=== PATIENT | female | born 1965 | race Caucasian/White ===

== ENCOUNTER 2017-08-17 21:30 | Emergency (ER) | payer BC, SELFPAY ==
--- NOTE | 2017-08-17 22:35 | RAD ---
PA AND LATERAL CHEST X-RAY 08/17/17 HISTORY: Dyspnea and shortness of breath. Cough. COMPARISON: 10/24/15. FINDINGS: Calcification of a right breast prosthesis. Cardiac silhouette and pulmonary vasculature are within n ormal limits. There is symmetric biapical pleural and parenchymal scarring stable from prior study on 10/24/15. Lungs are otherwise clear. There has been no interval change compared to the prior exam. IMPRESSION: No acute cardiopulmonary process. POS: HECTOR
== END 2017-08-17 22:58 | disposition home or self-care (01) ==
LOC: SCSER 21:30
DX: R05 Cough (principal); R06.02 Shortness of breath; F17.210 Nicotine dependence, cigarettes, uncomplicated; F41.9 Anxiety disorder, unspecified
CPT/HCPCS: 71046; 93005; 94640; J7620